=== PATIENT | female | born 1980 | race Two or more races ===

== ENCOUNTER 2017-02-20 13:07 | Emergency (ER) | payer OTHER ==
[2017-02-20 13:13] VITALS: BMI 25.7
--- NOTE | 2017-02-20 14:04 | PDOC ---
History of Present Illness <Consuelo Dhillon - Last Filed: 02/20/17 15:16> - General History Source: Patient Exam Limitations: No Limitations - History of Present Illness Initial Comments: 02/20/17 14:35 36 yo F with no significant PMHx presents with one day history foot swelling. She states she was in taxi yesterday. Today when she woke foot was swollen and itchy. She tried some steroid cream with minimal relief. No agravating factors. Denies fevers, chills, sweats, CP, KRISHNAN,SOB, palpitations. Timing/Duration: reports: yesterday Severity: Yes: mild Location: reports: feet Respiratory Risk Factors: reports: insect bite Associated Symptoms: reports: edema <Kevin Molina - Last Filed: 02/20/17 15:18> - General Chief Complaint: Redness To Affected Area Stated Complaint: SWOLLEN LT FOOT Time Seen by Provider: 02/20/17 13:58 Past History <Consuelo Dhillon - Last Filed: 02/20/17 15:16> - Travel Traveled outside of the country in the last 30 days: No Close contact w/someone who was outside of country & ill: No - Psycho/Social/Smoking Cessation Hx Anxiety: No Suicidal Ideation: No Smoking History: Never smoked Have you smoked in the past 12 months: No Information on smoking cessation initiated: No Hx Alcohol Use: No Drug/Substance Use Hx: No Substance Use Type: None <Kevin Molina - Last Filed: 02/20/17 15:18> - Past Medical History Allergies/Adverse Reactions: Allergies Allergy/AdvReac Type Severity Reaction Status Date / Time No Known Allergies Allergy Verified 02/20/17 13:11 Home Medications: Ambulatory Orders Clobetasol Prop 0.05% Tp Oint [Temovate (Nf)] 60 gm NR DAILY #1 tube 02/20/17 Prednisone [Deltasone -] 40 mg PO DAILY #4 tablet 02/20/17 Review of Systems - Review of Systems Integumentary: Yes: Change in Color, Erythema (left foot dorsum), Pruritus <Kevin Molina - Last Filed: 02/20/17 15:18> *Physical Exam - Vital Signs Last Vital Signs Temp Pulse Resp BP Pulse Ox 97.9 F 75 18 111/67 100 02/20/17 13:11 02/20/17 13:11 02/20/17 13:11 02/20/17 13:11 02/20/17 13:11 <Consuelo Dhillon - Last Filed: 02/20/17 15:16> - Vital Signs Last Vital Signs Temp Pulse Resp BP Pulse Ox 97.9 F 75 18 111/67 100 02/20/17 13:11 02/20/17 13:11 02/20/17 13:11 02/20/17 13:11 02/20/17 13:11 - Physical Exam General Appearance: No: Apparent Distress HEENT: positive: EOMI, BARBARA Neck: positive: Supple Respiratory/Chest: positive: Lungs Clear, Normal Breath Sounds. negative: Respiratory Distress, Accessory Muscle Use Cardiovascular: positive: Regular Rhythm, Regular Rate, S1, S2. negative: Edema , JVD, Murmur Vascular Pulses: Dorsalis-Pedis (R): 2+, Doralis-Pedis (L): 2+ Gastrointestinal/Abdominal: positive: Normal Bowel Sounds, Flat, Soft Musculoskeletal: positive: Normal Inspection. negative: CVA Tenderness Extremity: positive: Normal Inspection, Normal Range of Motion Integumentary: positive: Warm, Erythema, Swelling (dorsal surface of left foot extending from phalangeas to lateral malleolus.) <Kevin Molina - Last Filed: 02/20/17 15:18> ED Treatment Course - Medications Given in the ED: ED Medications Discontinued Medications Generic Name Dose Route Start Last Admin Trade Name Freq PRN Reason Stop Dose Admin Diphenhydramine HCl 25 mg 02/20/17 14:45 02/20/17 15:13 Benadryl - PO 02/20/17 14:46 25 mg ONCE ONE Administration Prednisone 40 mg 02/20/17 14:45 02/20/17 15:13 Deltasone - PO 02/20/17 14:46 40 mg ONCE ONE Administration <Consuelo Dhillon - Last Filed: 02/20/17 15:16> Medical Decision Making - Medical Decision Making 02/20/17 14:43 A:36 yo F with no significant PMHx presents with one day history foot swelling. Most likely allergic reaction to bug bite. P: * Will give benedryl 25mg PO now and 40mg PO Prednisone. * Will discharge home with 2 days of 40mg PO Prednisone. <Kevin Molina - Last Filed: 02/20/17 15:18> *DC/Admit/Observation/Transfer - Discharge Dispostion Admit: No <Consuelo Dhillon - Last Filed: 02/20/17 15:16> <Kevin Molina - Last Filed: 02/20/17 15:18> Diagnosis at time of Disposition: Allergic reaction to insect sting Qualifiers: Encounter type: initial encounter Injury intent: accidental or unintentional Qualified Code(s): T63.481A - Toxic effect of venom of other arthropod, accidental (unintentional), initial encounter - Discharge Dispostion Disposition: HOME Condition at time of disposition: Stable - Prescriptions Prescriptions: Prednisone [Deltasone -] 40 mg PO DAILY #4 tablet - Referrals Referrals: Cynthia Rogers MD [Primary Care Provider] - - Patient Instructions Printed Discharge Instructions: DI for Insect Allergy
--- NOTE | 2017-02-20 14:36 | PDOC ---
Attending Attestation - Resident Resident Name: Kevin Molina - ED Attending Attestation I have performed the following: I have examined & evaluated the patient, The case was reviewed & discussed with the resident, I agree w/resident's findings & plan, Exceptions are as noted - HPI HPI: 36 yo F no significant PMH p/w 1 day history of swollen left foot. She states that she was bitten by an insect in a taxi yesterday, then woke up with a swollen, itchy foot today. She applied steroid cream without significant relief. She denies pain, drainage. There is mild redness at the sites of the bites. Denies fever, chills. - Physicial Exam PE: GENERAL: Awake, alert, and fully oriented, in no acute distress HEAD: No signs of trauma EYES: PERRLA, EOMI, sclera anicteric, conjunctiva clear ENT: Auricles normal inspection, hearing grossly normal, nares patent, oropharynx clear without exudates. Moist mucosa EXTREMITIES: L foot with multiple erythematous lesions, non-pitting edema. Nontender to palpation. Remainder of extremities with normal range of motion, no edema. No clubbing or cyanosis. No cords, erythema, or tenderness NEUROLOGICAL: Cranial nerves II through XII grossly intact. Normal speech, normal gait SKIN: Warm, Dry, normal turgor, no rashes or lesions noted. - Medical Decision Making Will treat for allergic reaction to the bite. I counseled patient to avoid scratching, as it can cause infection. However, at present, no signs of infection. Will treat with benadryl and steroids, as the foot is significantly swollen.
[2017-02-20] MEDS ORDERED: diphenhydrAMINE HCL 25 MG CAPSULE (FP) PO ONE ×2 (14:45→15:10)
[2017-02-20] MEDS ORDERED: predniSONE 20 MG TABLET (UD) PO ONE (14:45)
[2017-02-20] MEDS ORDERED: predniSONE 20 MG TABLET (UD) ONE (15:09)
[2017-02-20 15:38] VITALS: BP 104/84; PULSE 71; TEMP 98.6
== END 2017-02-20 15:38 | disposition home or self-care (01) ==
LOC: JER 13:07
DX: T63.481A Toxic effect of venom of other arthropod, accidental (unintentional), initial encounter (principal); R60.0 Localized edema; Y92.810 Car as the place of occurrence of the external cause
CPT/HCPCS: 99282-25